=== PATIENT | male | born 1970 | race Caucasian/White ===

== ENCOUNTER → 2018-10-13 | Outpatient (CLI) | payer BC ==
--- NOTE | 2018-10-13 14:52 | NM ---
EXAMINATION TYPE: NM bone/joint limited DATE OF EXAM: 10/13/2018 COMPARISON: Right shoulder x-ray September 28, 2018. HISTORY: Recent abnormal x-ray, lytic lesion. TECHNIQUE: After the intravenous administration of 22.6 mCi Tc 99m MDP. Images acquired 3 hours pos t injection. Multiple views of the thorax are submitted in multiple projections including bilateral shoulders. Findings: There is no abnormal uptake within the visualized osseous structures to suggest osteoblasti c metastatic disease or other suspicious abnormality with particular attention to the right shoulder at area of radiographic concern. It is however noted lucent lesion may be bone scan negative. IMPRESSION: As above, unremarkable study.
== END ==
LOC: RADNMMAIN 10:08
PROVIDERS: ATTEND Physician Assistant
DX: R93.7 Abnormal findings on diagnostic imaging of other parts of musculoskeletal system (principal)
CPT/HCPCS: 78300; A9503

== ENCOUNTER → 2018-12-23 | Outpatient (CLI) | payer BC ==
--- NOTE | 2018-12-23 14:11 | ECHOF ---
Referral Reason:R94.31 abnormal EKG MEASUREMENTS -------- HEIGHT: 180.3 cm WEIGHT: 95.3 kg BP: 128/77 RVIDd: 2.9 cm (< 3.3) IVSd: 1.1 cm (0.6 - 1.1) LVIDd: 3.7 cm (3.9 - 5.3) LVPWd: 1.1 cm (0.6 - 1.1) IVSs: 1.6 cm LVIDs: 2.5 cm LVPWs: 1.7 cm LA Diam: 2.6 cm (2.7 - 3.8) LAESV Index (A-L): 18.07 ml/m Ao Diam: 2.9 cm (2.0 - 3.7) AV Cusp: 1.8 cm (1.5 - 2.6) EPSS: 0.6 cm MV E Beka: 0.93 m/s MV DecT: 315 ms MV A Beka: 0.94 m/s MV E/A Ratio: 0.99 MV EF SLOPE: 53.92 mm/s (70 - 150) MV EXCURSION: 1.82 cm (> 18.000) FINDINGS -------- Sinus rhythm. This was a technically adequate study. The left ventricular size is normal. There is borderline concentric left ventricular hypertrophy. Overall left ventricular systolic function is normal with, an EF between 60 - 65 %. The right ventricle is normal in size. Normal LA size by volume 22+/-6 ml/m2. The right atrium is normal in size. Interatrial and interventricular septum intact. The aortic valve is trileaflet and appears structurally normal. The mitral valve is normal. The tricuspid valve appears structurally normal. The pulmonic valve was not well visualized. The aortic root size is normal. Normal inferior vena cava with normal inspiratory collapse consistent with estimated right atrial pre ssure of 5 mmHg. There is no pericardial effusion. CONCLUSIONS -------- 1. Sinus rhythm. 2. This was a technically adequate study. 3. The left ventricular size is normal. 4. There is borderline concentric left ventricular hypertrophy. 5. Overall left ventricular systolic function is normal with, an EF between 60 - 65 %. 6. The right ventricle is normal in size. 7. Normal LA size by volume 22+/-6 ml/m2. 8. The right atrium is normal in size. 9. Interatrial and interventricular septum intact. 10. The aortic valve is trileaflet and appears structurally normal. 11. The mitral valve is normal. 12. The tricuspid valve appears structurally normal. 13. The pulmonic valve was not well visualized. 14. The aortic root size is normal. 15. Normal inferior vena cava with normal inspiratory collapse consistent with estimated right atrial pressure of 5 mmHg. 16. There is no pericardial effusion. SIX SIGMA BLACK BELT ENGINEER: SHAUNA Suárez
--- NOTE | 2018-12-24 14:06 | EST ---
EXERCISE STRESS DATE OF SERVICE: 12/23/2018 AGE: 48 SEX: Male HT: 71 WT: 210 PROTOCOL: Abrahan STAGE: IV DURATION OF EXERCISE: 9 minutes 35 minutes HEART RATE REST: 95 BLOOD PRESSURE REST: 128/78 MAXIMUM HEART RATE ACHIEVED: 149 MAXIMUM BLOOD PRESSURE: 136/52 85% MPHR: 148 100% MPHR: 174 METS: 11.1 INDICATIONS: Abnormal EKG. CLINICAL INFORMATION: The patient was exercised for a total period of 9 minutes and 35 seconds. The peak heart rate of 149 was achieved. Maximum blood pressure of 136/52 mmHg was noted. Resting EKG shows normal sinus rhythm with normal MI interval and QRS duration and normal ST-T waves. No ST-segment depression suggestive of ischemia is noted. No dysrhythmias are noted. The patient did not complain of any chest pain during the test. FINAL IMPRESSION: 1. This exercise test is not suggestive of ischemia. 2. Patient's exercise tolerance is normal. 3. Patient did not complain of any chest pain during the test. MMODL / IJN: [id number] /
== END | disposition home or self-care (01) ==
LOC: RADNMMAIN 08:53
PROVIDERS: ATTEND Family Medicine
DX: R94.31 Abnormal electrocardiogram [ECG] [EKG] (principal)
CPT/HCPCS: 93017; 93306